=== PATIENT | male | born 1955 | race African-American/Black ===

== ENCOUNTER 2017-01-26 15:10 | Emergency (ER) | payer OTHER ==
--- NOTE | 2017-01-26 16:29 | ER Document Report ---
ED Medical Screen (RME) - General Chief Complaint: Groin Pain Stated Complaint: ABDOMINAL PAIN Time Seen by Provider: 01/26/17 16:24 Mode of Arrival: Ambulatory Information source: Patient Notes: This is a 61-year-old man with a history of hypertension, coronary artery disease (stent), GERD who presents to the emergency room with generalized abdominal discomfort for the past week, decreased p.o. intake, diarrhea and swelling to the right groin area. TRAVEL OUTSIDE OF THE [place] IN LAST 30 DAYS: No - Related Data Allergies/Adverse Reactions: No Known Allergies Allergy (Unverified 01/26/17 15:20) Past Medical History - Social History Chew tobacco use (# tins/day): No Frequency of alcohol use: None Drug Abuse: None - Past Medical History Cardiac Medical History: Reports: Hx Hypertension Renal/ Medical History: Denies: Hx Peritoneal Dialysis Past Surgical History: Reports: Hx Cardiac Catheterization - stent 2009 - Immunizations Hx Diphtheria, Pertussis, Tetanus Vaccination: Yes History of Influenza Vaccine for 01/2017 - 06/2017 Season: No Physical Exam - Vital signs Vitals: Temp Pulse Resp BP Pulse Ox 98.7 F 81 18 131/81 H 98 01/26/17 15:23 01/26/17 15:23 01/26/17 15:23 01/26/17 15:23 01/26/17 15:23 Course - Vital Signs Vital signs: Temp Pulse Resp BP Pulse Ox 98.7 F 81 18 131/81 H 98 01/26/17 15:23 01/26/17 15:23 01/26/17 15:23 01/26/17 15:23 01/26/17 15:23
[2017-01-26] MEDS ORDERED: NORMAL SALINE 500 ML IV PRN (16:30)
[2017-01-26 17:25] LABS: ABSOLUTE EOSINOPHILS # (AUTO) 0.2 10^3/uL (0.0-0.6); ABSOLUTE LYMPHOCYTES (AUTO) 1.6 10^3/uL (0.5-4.7); ABSOLUTE MONOCYTES (AUTO) 0.7 10^3/uL (0.1-1.4); ABSOLUTE NEUT (AUTO) 4.8 10^3/uL (1.7-8.2); BASOPHILS % (AUTO) 0.5 % (0-2); EOSINOPHILS % (AUTO) 2.6 % (0-6); HEMATOCRIT 32.6 % (37.9-51.0); HEMOGLOBIN 11.5 g/dL (13.5-17.0); HGB HCT DIFFERENCE 1.9; LYMPHOCYTES % (AUTO) 21.3 % (13-45); MEAN CORPUSCULAR HEMOGLOBIN 35.5 pg (27.0-33.4); MEAN CORPUSCULAR HGB CONC 35.3 g/dL (32.0-36.0); MEAN CORPUSCULAR VOLUME 101 fl (80-97); MONOCYTES % (AUTO) 10.1 % (3-13); RED BLOOD COUNT 3.24 10^6/uL (4.35-5.55); RED CELL DISTRIBUTION WIDTH 18.4 % (11.5-14.0); SEGMENTED NEUTROPHILS % (AUTO) 65.5 % (42-78); WHITE BLOOD COUNT 7.3 10^3/uL (4.0-10.5)
[2017-01-26 17:35] LABS: PROTHROMBIN TIME 25.7 SEC (11.4-15.4)
--- NOTE | 2017-01-26 18:56 | ER Document Report ---
ED GI/ - General Chief Complaint: Groin Pain Stated Complaint: ABDOMINAL PAIN Time Seen by Provider: 01/26/17 16:24 Mode of Arrival: Ambulatory Notes: The patient is a 61-year-old male, past medical history CAD, cirrhosis, presents from the [facility] with 1 week of generalized abdominal crampiness, diarrhea and a new right inguinal mass. He is scheduled to see the [facility] in [place] next week for an EGD and for f/u for his cirrhosis. Patient denies urinary symptoms, flank pain, nausea, vomiting, chest pain, shortness of breath , fevers, testicular pain or penile discharge. TRAVEL OUTSIDE OF THE [place] IN LAST 30 DAYS: No - Related Data Allergies/Adverse Reactions: No Known Allergies Allergy (Unverified 01/26/17 15:20) Past Medical History - General Information source: Patient - Social History Smoking Status: Never Smoker Chew tobacco use (# tins/day): No Frequency of alcohol use: None Drug Abuse: None Family History: None Patient has suicidal ideation: No - Past Medical History Cardiac Medical History: Reports: Hx Hypertension Renal/ Medical History: Denies: Hx Peritoneal Dialysis Past Surgical History: Reports: Hx Cardiac Catheterization - stent 2009 - Immunizations Hx Diphtheria, Pertussis, Tetanus Vaccination: Yes Review of Systems - Review of Systems Notes: REVIEW OF SYSTEMS: CONSTITUTIONAL: -fevers, -chills EENT: -eye pain, -difficulty swallowing, -nasal congestion CARDIOVASCULAR:-chest pain, -syncope. RESPIRATORY: -cough, -SOB GASTROINTESTINAL: +abdominal pain, -nausea, -vomiting, +diarrhea GENITOURINARY: -dysuria, -hematuria MUSCULOSKELETAL: -back pain, -neck pain SKIN: -rash or skin lesions. HEMATOLOGIC: -easy bruising or bleeding. LYMPHATIC: -swollen, enlarged glands. NEUROLOGICAL: -altered mental status or loss of consciousness, -headache, - neurologic symptoms PSYCHIATRIC: -anxiety, -depression. ALL OTHER SYSTEMS REVIEWED AND NEGATIVE. Physical Exam - Vital signs Vitals: Temp Pulse Resp BP Pulse Ox 98.7 F 81 18 131/81 H 98 01/26/17 15:23 01/26/17 15:23 01/26/17 15:23 01/26/17 15:23 01/26/17 15:23 - Notes Notes: PHYSICAL EXAMINATION: GENERAL: Well-appearing, well-nourished and in no acute distress. HEAD: Atraumatic, normocephalic. EYES: Pupils equal round and reactive to light, extraocular movements intact, sclera icteric, conjunctiva are normal. ENT: nares patent, oropharynx clear without exudates. Moist mucous membranes. NECK: Normal range of motion, supple without lymphadenopathy LUNGS: Breath sounds clear to auscultation bilaterally and equal. No wheezes rales or rhonchi. HEART: Regular rate and rhythm without murmurs ABDOMEN: Soft, mild RLQ tenderness. Reducible right inguinal hernia. Normal bowel sounds. Non-tender testicles. EXTREMITIES: Normal range of motion, no pitting or edema. No cyanosis. NEUROLOGICAL: Cranial nerves grossly intact. Normal speech, normal gait. Normal sensory and motor exams. PSYCH: Normal mood, normal affect. SKIN: Warm, Dry, normal turgor, no rashes or lesions noted. Course - Re-evaluation Re-evalutation: The patient appears well. He is no longer feeling nauseous or having abdominal pain. He has evidence of a reducible right inguinal hernia. In addition, he has evidence of cirrhosis with ascites. He also has colitis. The radiologist is unable to rule out gut ischemia, but patient appears very well and his lactate is 1. Clinically, he has no signs of gut ischemia. Patient's ultrasound also shows evidence of cholelithiasis, but no evidence of cholecystitis at this time. Will send home patient on Cipro and Flagyl to help with his colitis symptoms. He has an appointment with the GI doctor at [facility] next week. Instructed him to call for an appointment to be seen earlier. Given very strict return precautions and he understands. - Vital Signs Vital signs: Temp Pulse Resp BP Pulse Ox 98.7 F 81 18 131/81 H 98 01/26/17 15:23 01/26/17 15:23 01/26/17 15:23 01/26/17 15:23 01/26/17 15:23 - Laboratory Result Diagrams: 01/26/17 17:00 01/26/17 18:21 Laboratory results interpreted by me: 01/26/17 01/26/17 01/26/17 17:00 17:00 18:21 RBC 3.24 L Hgb 11.5 L Hct 32.6 L MCV 101 H MCH 35.5 H RDW 18.4 H Plt Count 143 L PT 25.7 H Sodium 136.0 L Total Bilirubin 14.3 H Direct Bilirubin 6.7 H Alkaline Phosphatase 193 H Albumin 2.9 L Urine Ketones Urine Blood Urine Bilirubin Urine Urobilinogen 01/26/17 19:39 RBC Hgb Hct MCV MCH RDW Plt Count PT Sodium Total Bilirubin Direct Bilirubin Alkaline Phosphatase Albumin Urine Ketones TRACE H Urine Blood SMALL H Urine Bilirubin MODERATE H Urine Urobilinogen 4.0 H - Diagnostic Test Radiology reviewed: Image reviewed, Reports reviewed Radiology results interpreted by me: CT A/P: The liver demonstrates a nodular contour suggesting hepatic cirrhosis. Clinical correlation is recommended. Intra-abdominal and pelvic ascitic fluid as noted above. There is thickening of the melton of the colon extending from the level of the cecum to the level of the sigmoid colon. The differential possibilities would include edematous or inflammatory changes. The possibility of bowel ischemia cannot be excluded. Clinical correlation is recommended. Other findings as noted above. RUQ US: 1. Cholelithiasis without ultrasonographic evidence of cholecystitis. 2. Borderline extrahepatic biliary ductal dilatation. No intrahepatic ductal dilatation. 3. Normal hepatopedal blood flow in the portal vein. 4. Abnormal liver findings as described above. Suspect hepatic cirrhosis. 5. Small amount of ascites. Discharge - Discharge Clinical Impression: Colitis, Reducible right inguinal hernia Abdominal pain Qualifiers: Abdominal location: unspecified location Qualified Code(s): R10.9 - Unspecified abdominal pain Nausea and vomiting Qualifiers: Vomiting type: unspecified Vomiting Intractability: unspecified Qualified Code( s): R11.2 - Nausea with vomiting, unspecified Cirrhosis Qualifiers: Hepatic cirrhosis type: unspecified hepatic cirrhosis Ascites presence: with ascites Qualified Code(s): K74.60 - Unspecified cirrhosis of liver Cholelithiasis Qualifiers: Cholelithiasis location: other site Biliary obstruction: without biliary obstruction Qualified Code(s): K80.80 - Other cholelithiasis without obstruction Condition: Stable Disposition: HOME, SELF-CARE Additional Instructions: Take the full course of antibiotics to help with your colitis. He also have evidence of cirrhosis and need follow-up at the GI doctor. Call tomorrow and see if he can be seen earlier. Take Zofran for any nausea. Follow-up with the surgeon to have your hernia repaired and return to the ER if you notice any worsening pain or any other concerns. ABDOMINAL PAIN: There are many causes of abdominal pain. Pain can mean a serious problem requiring surgery (such as appendicitis). It can also be an innocent problem that goes away on its own (such as a viral infection). Often, time must pass to determine the cause of pain. The physician does not feel that hospitalization is necessary, at present. Things may change within the next 24 hours. Call the doctor or come back for re- examination if any problems occur, such as: (1) Pain that becomes more severe, steady, or becomes concentrated in one specific area. Also, pain that is more severe with movement or coughing. (2) Vomiting that persists or becomes more frequent. (3) Blood in the vomitus, urine, or bowel movements. Blood in the stool may have a tarry or black appearance. (4) Shaking chills or fever greater than 100 degrees F. (5) The abdomen becomes more distended or swollen. (6) Bowel movements cease. (7) Failure to improve as expected. ANTINAUSEA MEDICATION: You have been given a medication to suppress nausea and vomiting. This type of medication can be given as a shot, pill, or suppository. It will usually last for many hours. Pills and shots usually last six to eight hours, suppositories last about 12 hours. For the typical illness, only one or two doses of the medication may be necessary. Mild lightheadedness may occur. This type of medicine can cause drowsiness. Do not drive or operate dangerous machinery while under its influence. Do not mix with alcohol. See your doctor at once if you have muscle spasms or tightness, or uncontrollable motions (particularly of the neck, mouth, or jaw). Persistent vomiting or severe lightheadedness should also be evaluated by the physician. FOLLOW-UP CARE: If you have been referred to a physician for follow-up care, call the physician s office for an appointment as you were instructed or within the next two days. If you experience worsening or a significant change in your symptoms, notify the physician immediately or return to the Emergency Department at any time for re-evaluation. COLITIS, NONSPECIFIC: Colitis is an inflammatory disease of the large intestine which affects the lining of the bowel. The cause is uncertain, though it is often caused by an infection. In some cases, the symptoms resolve and can return again in the future. Colitis is characterized by abdominal pain, often nausea and vomiting, and either diarrhea or difficulty with bowel movements. Sometimes blood will be present in the bowel movements. Fever is often present as well. Milder cases of colitis can be managed as an outpatient with medications for nausea and vomiting and pain, oral fluid therapy, and perhaps antibiotics, if a bacterial origin is suspected. Antidiarrhea medicine should usually be avoided in colitis. If you have increasing abdominal pain, repeated vomiting, fever, rectal bleeding, or worsening diarrhea, you should return for re-evaluation. ANTIBIOTIC THERAPY: You have been given an antibiotic prescription. It's important that you take all the medication, unless instructed otherwise by your physician. Failure to complete the entire course can result in relapse of your condition. Common side effects of antibiotics include nausea, intestinal cramping, or diarrhea. Women may develop vaginal yeast infections, and babies can get yeast (thrush) in the mouth following the use of antibiotics. Contact your physician if you develop significant side effects from this medication. Allergy to this antibiotic can result in hives, wheezing, faintness, or itching. If symptoms of allergy occur, stop the medication and call the doctor. CIPROFLOXACIN: You have been given an antibacterial agent, ciprofloxacin (Cipro). This medicine is not related to the penicillins, sulfas, cephalosporins, or tetracyclines. It is often given to patients who are allergic to these drugs. It has been chosen for you either because other drugs are not appropriate, or because of the nature of your problem. Cipro should not be taken with antacids, as these can decrease its effectiveness. It can be taken without regard to meals. CIPRO SHOULD NOT BE TAKEN BY CHILDREN, NURSING WOMEN, OR WOMEN. Although Cipro is usually well-tolerated, common side effects can include nausea and diarrhea. Contact your doctor if you experience any unusual symptoms while on this medication, such as joint pain or swelling, shortness of breath, wheezing, faintness, or hives. METRONIDAZOLE: Metronidazole (Flagyl) has been prescribed. This medication is used to kill a type of bacteria called anaerobes, and protozoan parasites such as trichomonas and Giardia. Flagyl often causes a metallic taste in the mouth and mild nausea. Do not use alcohol in any form with Flagyl (including alcohol in medication elixirs). Flagyl interacts with alcohol to cause flushing, palpitations, headache, stomach cramps, and vomiting. Do not use Flagyl if you are taking Antabuse (disulfiram). Call the doctor at once if you develop rash, shortness of breath, itching, or lightheadedness. FOLLOW-UP CARE: If you have been referred to a physician for follow-up care, call the physician s office for an appointment as you were instructed or within the next two days. If you experience worsening or a significant change in your symptoms, notify the physician immediately or return to the Emergency Department at any time for re-evaluation. Prescriptions: Ciprofloxacin HCl [Cipro 500 mg Tablet] 500 mg PO BID #20 tablet Metronidazole [Flagyl 500 mg Tablet] 500 mg PO Q8H #30 tablet Ondansetron [Zofran Odt 4 mg Tablet] 1 - 2 tab PO Q4H PRN #15 tab.rapdis PRN Reason: For Nausea/Vomiting Referrals: SHERON FERNANDEZ MD [ACTIVE STAFF] - Follow up as needed RENETTA LARKIN MD [ACTIVE STAFF] - Follow up as needed
[2017-01-26 18:57] LABS: ALANINE AMINOTRANSFERASE 28 U/L (21-72); ALBUMIN 2.9 g/dL (3.5-5.0); ALKALINE PHOSPHATASE 193 U/L (38-126); ANION GAP 8 (5-19); ASPARTATE AMINO TRANSFERASE 48 U/L (17-59); BILIRUBIN,DIRECT 6.7 mg/dL (0.0-0.4); BILIRUBIN,TOTAL 14.3 mg/dL (0.2-1.3); BLOOD UREA NITROGEN 15 mg/dL (7-20); CALCIUM 8.5 mg/dL (8.4-10.2); CARBON DIOXIDE 28 mmol/L (22-30); CHLORIDE 100 mmol/L (98-107); CREATININE RESULT 0.87 mg/dL (0.52-1.25); GLUCOSE 94 mg/dL (75-110); LIPASE 209.6 U/L (23-300); TOTAL PROTEIN 8.2 g/dL (6.3-8.2)
[2017-01-26 20:09] LABS: APPEARANCE,URINE SLIGHTLY-CLOUDY; BILIRUBIN,URINE MODERATE (NEGATIVE); GLUCOSE, URINE NEGATIVE (NEGATIVE); KETONES,URINE TRACE mg/dL (NEGATIVE); LEUKOCYTE ESTERASE,URINE NEGATIVE (NEGATIVE); NITRITE,URINE NEGATIVE (NEGATIVE); PROTEIN,URINE NEGATIVE (NEGATIVE); URINE SPECIFIC GRAVITY 1.021
--- NOTE | 2017-01-26 21:00 | RADIOLOGY REPORT (SQ) ---
EXAM DESCRIPTION: CT ABD/PELVIS WITH IV ONLY COMPLETED DATE/TIME: 01/26/2017 8:14 pm REASON FOR STUDY: RLQ tenderness, vomiting COMPARISON: None. TECHNIQUE: CT scan of the abdomen and pelvis performed using helical scanning technique with dynamic intravenous contrast injection. No oral contrast. Images reviewed with lung, soft tissue, and bone windows. Reconstructed coronal and sagittal MPR images reviewed. Delayed images for evaluation of the urinary system also acquired. All images stored on PACS. All CT scanners at this facility use dose modulation, iterative reconstruction, and/or weight based d osing when appropriate to reduce radiation dose to as low as reasonably achievable (ALARA). [facility]: Dose Right [facility]: CareDose [facility]: Dose Right [facility]: Teradose 4D [facility]: [place] CONTRAST TYPE AND DOSE: contrast/concentration: Isovue 370.00 mg/ml; Total Contrast Delivered: 100.0 ml; Total Saline Delivered: 35.0 ml RENAL FUNCTION: Creatinine 0.87 RADIATION DOSE: Up-to-date CT equipment and radiation dose reduction techniques were employed. CTDIv ol: 13.3 - 17.8 mGy. DLP: 2038 mGy-cm.. LIMITATIONS: None. FINDINGS: LOWER CHEST: No significant findings. No nodules or infiltrates. LIVER: The liver demonstrates a nodular contour suggesting hepatic cirrhosis. Clinical correlation i s recommended. . No masses. No dilated ducts. SPLEEN: Normal size. No focal lesions. PANCREAS: Calcific densities are identified at the level of the pancreatic head. While this may only be related to focal chronic pancreatitis, the possibility of an underlying mass cannot be excluded. A dedicated pancreatic study may be of value for further evaluation. No adjacent inflammation or per ipancreatic fluid collections. Pancreatic duct not dilated. GALLBLADDER: There is increased density in the dependent portion of the gallbladder lumen which could represent biliary sludge or tiny gallstones. No inflammatory changes to suggest cholecystitis. ADRENAL GLANDS: No significant masses or asymmetry. RIGHT KIDNEY AND URETER: No solid masses. No significant calcifications. No hydronephrosis or hyd roureter. LEFT KIDNEY AND URETER: No solid masses. No significant calcifications. No hydronephrosis or hydr oureter. AORTA AND VESSELS: No aneurysm. No dissection. Renal arteries, SMA, celiac without stenosis. RETROPERITONEUM: No retroperitoneal adenopathy, hemorrhage or masses. BOWEL AND PERITONEAL CAVITY: Intra-abdominal and pelvic ascitic fluid is identified with a prominent perihepatic component in pelvic component. There is thickening of the melton of the colon extending f rom the level of the cecum to the level of the sigmoid colon. The differential possibilities would i nclude edematous or inflammatory changes. The possibility of bowel ischemia cannot be excluded. APPENDIX: Not identified PELVIS: Pelvic ascitic fluid is identified. ABDOMINAL WALL: No masses. A right inguinal hernia is identified containing ascitic fluid. BONES: No significant or acute findings. OTHER: No other significant finding. IMPRESSION: The liver demonstrates a nodular contour suggesting hepatic cirrhosis. Clinical correla tion is recommended. Intra-abdominal and pelvic ascitic fluid as noted above. There is thickening o f the melton of the colon extending from the level of the cecum to the level of the sigmoid colon. Th e differential possibilities would include edematous or inflammatory changes. The possibility of bow el ischemia cannot be excluded. Clinical correlation is recommended. Other findings as noted above TECHNICAL DOCUMENTATION: JOB ID: [id number] Quality ID # [id number]: Final reports with documentation of one or more dose reduction techniques (e.g., Au tomated exposure control, adjustment of the mA and/or kV according to patient size, use of iterative reconstruction technique) 2010 [employer]- All Rights Reserved
[2017-01-26] MEDS ORDERED: NORMAL SALINE 1000 ML 1,000 ML IV ONE (22:33)
[2017-01-26] MEDS ORDERED: METRONIDAZOLE 500 MG/NS RTU 100 ML IV SCH (22:45)
[2017-01-26] MEDS ORDERED: CIPROFLOXACIN 400 MG/D5W RTU 400 MG/200 ML RTUPB IV SCH (23:00)
--- NOTE | 2017-01-27 01:00 | RADIOLOGY REPORT (SQ) ---
EXAM DESCRIPTION: U/S ABDOMEN LIMITED W/O DOP CLINICAL HISTORY: 61 years, Male, elevated LFTs COMPARISON: None. TECHNIQUE: History scale, color Doppler and spectral Doppler waveform analysis techniques were all utilized to perform this examination. LIMITATIONS: None. FINDINGS: Isoechoic mobile probable gallbladder sludge. Several hyperechoic mobile shadowing stones in the fluid-filled gallbladder. No gallbladder wall thickening or pericholecystic fluid. Gallbladder wall measures 1.9 mm. No sonographic Reyes's sign. Pancreas is not visualized. Right hepatic lobe has very heterogeneous echotexture with peripheral nodularity suggesting hepatic cirrhosis. Greatest sagittal dimension the liver equals 17.6 cm. There is normal hepatopedal blood flow in the portal vein using color Doppler and spectral Doppler waveform analysis techniques. Common duct is at the upper limits of normal measuring 5.4 mm. Right kidney is normal measuring 13.1 cm in greatest sagittal dimension. Small amount of ascites adjacent to liver. IMPRESSION: 1. Cholelithiasis without ultrasonographic evidence of cholecystitis. 2. Borderline extrahepatic biliary ductal dilatation. No intrahepatic ductal dilatation. 3. Normal hepatopedal blood flow in the portal vein. 4. Abnormal liver findings as described above. Suspect hepatic cirrhosis. 5. Small amount of ascites. 2011 [employer]- All Rights Reserved
[2017-01-27 02:56] VITALS: BP 138/74
== END 2017-01-27 02:32 | disposition home or self-care (01) ==
LOC: ER 15:10
DX: K52.9 Noninfective gastroenteritis and colitis, unspecified (principal); K40.90 Unilateral inguinal hernia, without obstruction or gangrene, not specified as recurrent; R10.9 Unspecified abdominal pain; R11.2 Nausea with vomiting, unspecified; K74.60 Unspecified cirrhosis of liver; K80.80 Other cholelithiasis without obstruction; I10 Essential (primary) hypertension
CPT/HCPCS: 99284; 96361; 96365; 96368; 36415; 83605; 83690; 85025; 85610; 80053; 81001; 76705; 74177; J7030; J7040